=== PATIENT | female | born 1995 | race Caucasian/White ===

== ENCOUNTER 2021-08-18 10:01 | Inpatient (IN) | payer OTHER ==
[~2021-08-18] VITALS: Ht 154.9 cm; Wt 2.7 kg
[2021-08-19] MEDS ORDERED: PRENATAL CAPLE1 EAC1 PO (08:18)
[2021-08-22] MEDS ORDERED: IBUPROFEN800 MG PO (08:31)
== END 2021-08-22 14:43 | disposition home or self-care (01) | DRG 788 ==
LOC: O/R 08-19 09:56 → SURG-SUITE 08-19 15:23 → OB/GYN 08-28 10:00
PROVIDERS: ADMIT Specialist; ATTEND Specialist
PROC: 4A1HXCZ Monitoring of Products of Conception, Cardiac Rate, External Approach (ICD-10-PCS; 2021-08-19)
PROC: 10D00Z1 Extraction of Products of Conception, Low, Open Approach (ICD-10-PCS; principal; 2021-08-19 10:00)
DX: O32.2XX0 Maternal care for transverse and oblique lie, not applicable or unspecified (principal); Z3A.38 38 weeks gestation of pregnancy; Z37.0 Single live birth; Z20.822 Contact with and (suspected) exposure to COVID-19